=== PATIENT | female | born 1945 | race Asian ===

== ENCOUNTER 2017-04-13 20:44 | Inpatient (IN) | payer MEDICARE, OTHER ==
[~2017-04-13] VITALS: Ht 152.4 cm; Wt 44.5 kg
--- NOTE | 2017-04-13 20:50 | NUR ---
CALLED NURSING SUP. FOR TELE BED
--- NOTE | 2017-04-13 20:50 | NUR ---
BB RA 81. PT C/O LEFT SIDED CP 1HR AGING BOX HAND. PER IV STARTED ON LEFT WRIST 20G, INTACT AND PATENT. EMS ADMIN 162 ASPRIN AND 2 SPRAYS NITRO WITH RELIEF. PT AOX4 RR EVEN AND UNLABORED. NO SOB NOTED. NAD NOTED. NO NVD AT THIS TIME. PT NOT DIAPHORETIC. PT GOWNED AND PLACED ON MONITOR. DR LOVETT AT BEDSIDE FOR EVAL.
[2017-04-13 20:58] LABS: BASOPHILS # (AUTO) 0.4 /CMM (0.0-0.2); BASOPHILS % (AUTO) 2.7 % (0.0-2.0); EOSINOPHILS % (AUTO) 0.3 % (0.0-6.0); HEMATOCRIT 37 % (33-45); HEMOGLOBIN 12.4 g/dL (11.5-14.8); LYMPHOCYTES # (AUTO) 0.9 /CMM (0.8-4.8); LYMPHOCYTES % (AUTO) 5.7 % (20.0-44.0); MEAN CORPUSCULAR HEMOGLOBIN 30 PG (26.0-33.0); MEAN CORPUSCULAR HGB CONC 34 g/dl (31.0-36.0); MEAN CORPUSCULAR VOLUME 91 fL (82-100); MONOCYTES % (AUTO) 6.5 % (2.0-12.0); NEUTROPHILS # (AUTO) 13.5 /CMM (1.8-8.9); NEUTROPHILS % (AUTO) 84.8 % (43.0-81.0); PLATELET COUNT (AUTO) 287 /CMM (150-450); RDW COEFFICIENT OF VARIATION 11.7 (11.5-15.0); RED BLOOD CELL COUNT(AUTO) 4.06 MIL/uL (4.0-5.2); WHITE BLOOD COUNT (AUTO) 15.8 K/uL (4.3-11.0)
[2017-04-13] MEDS ORDERED: ONDANSETRON HCL/PF 4 MG/2 ML VIAL ONE (20:59)
[2017-04-13] MEDS ORDERED: MORPHINE SULFATE INJ 4 MG/ML DISP.SYRIN ONE (20:59)
[2017-04-13] MEDS ORDERED: ONDANSETRON HCL/PF 4 MG/2 ML VIAL IVP ONE (21:00)
[2017-04-13] MEDS ORDERED: MORPHINE SULFATE INJ 2 MG/ML DISP.SYRIN IV ONE (21:00)
--- NOTE | 2017-04-13 21:01 | NUR ---
XRAY AT BEDSIDE
[2017-04-13 21:08] LABS: CALCIUM, SERUM 8.6 mg/dL (8.5-10.1); CARBON DIOXIDE 26 mmol/L (21-32); CHLORIDE 101 mmol/L (98-107); CREATININE 0.7 mg/dL (0.6-1.3); GLUCOSE 236 mg/dL (74-106); SODIUM SERUM 137 mmol/L (136-145); UREA NITROGEN, BLOOD 10 mg/dL (7-18)
[2017-04-13 21:17] LABS: TROPONIN I < 0.017 ng/mL (0.00-0.056)
--- NOTE | 2017-04-13 21:21 | NUR ---
PT ASSIGNED TO [facility] [id number]
[2017-04-13] MEDS ORDERED: IV NS 0.9% 1,000 ML ONE (21:29)
[2017-04-13] MEDS ORDERED: IV SET PRIMARY PUMP SET 1 EA INFUS.SET MC ONE ×2 (21:29→22:01)
[2017-04-13] MEDS ORDERED: CEFTRIAXONE 1GM BAG (ER ONLY) 50 ML IV ONE ×2 (21:29→21:30)
[2017-04-13] MEDS ORDERED: IV NS 0.9% 500 ML IV ONE (21:29)
[2017-04-13] MEDS ORDERED: AZITHROMYCIN 500 MG in IV D5W 250 ML IV ONE (21:30)
[2017-04-13] MEDS ORDERED: IV NS 0.9% 1,000 ML BAG IV ONE (21:30)
--- NOTE | 2017-04-13 21:53 | NUR ---
JESUS CALLED, BUGGY DRIVER, TRANSFERRED CALL TO
--- NOTE | 2017-04-13 21:55 | NUR ---
REPORT GIVEN TO RAVI NUGENT FOR TELE BED [phone]
[2017-04-13] MEDS: CEFTRIAXONE 1 G in IV D5W 50 ML IV SCH (22:00)
[2017-04-13] MEDS ORDERED: ACETAMINOPHEN 325 MG TABLET PO PRN (22:00)
[2017-04-13] MEDS ORDERED: ENOXAPARIN SODIUM 40 MG/0.4 ML DISP.SYRIN SQ SCH (22:00)
[2017-04-13] MEDS ORDERED: *INSULIN REGULAR(HUMULIN R)HUM 100 UNIT/ML VIAL SQ PRN (22:00)
[2017-04-13] MEDS ORDERED: HYDROCODONE/APAP 5/325MG 1 EACH TABLET PO PRN (22:00)
[2017-04-13] MEDS ORDERED: INSULIN REGULAR, HUMAN 100 UNIT/ML 3 ML VIAL SQ PRN (22:00)
[2017-04-13] MEDS ORDERED: MAGNESIUM HYDROXIDE 30 ML UDC PO PRN (22:00)
[2017-04-13] MEDS ORDERED: MAG HYDROX/AL HYDROX/SIMETH 30 ML UDC PO PRN (22:00)
[2017-04-13] MEDS ORDERED: ONDANSETRON HCL/PF 4 MG/2 ML VIAL IVP PRN (22:00)
[2017-04-13] MEDS ORDERED: DEXTROSE 50%-WATER 50 ML DISP.SYRIN IV PRN (22:00)
[2017-04-13] MEDS ORDERED: AZITHROMYCIN 500 MG VIAL ONE (22:00)
[2017-04-13] MEDS ORDERED: Z GUARD REMEDY 2 OZ OINT TP PRN (22:00)
[2017-04-13] MEDS ORDERED: ZOLPIDEM TARTRATE 5 MG TABLET PO PRN (22:00)
[2017-04-13] MEDS ORDERED: BLOOD SUGAR DIAGNOSTIC 1 EACH STRIP VI SCH (22:00)
[2017-04-13] MEDS ORDERED: IV D5W 250 ML IV ONE (22:01)
[2017-04-13 22:03] LABS: D-DIMER 0.23 mg/L(FEU (0.17-0.50); INR 0.94 (0.87-1.13)
[2017-04-13 22:25] VITALS: BP 139/69
--- NOTE | 2017-04-13 22:25 | NUR ---
RN NOTES ADMITTED A 72 YEARS OLD FEMALE, YAKUT PT FROM ER WITH PRIMARY DIAGNOSIS OF PNEUMONIA UNDER DR DING. PT ALERT AND ORIENTED X4, CHEST PAIN AT TOLERABLE LEVEL AT THIS TIME 2/10 ONLY ON MOVEMENT AND COUGHING. PT DENIES SOB, NOT IN DISTRESS, ON ROOM AIR AND TOLERATED WELL. VITAL SIGNS STABLE, AFEBRILE. ATTACHED TO TELE MONITOR WHICH READS SINUS RHYTHM WITH HEART RATE AT 83. BODY AND SKIN ASSESSMENT DONE WITH PICTURES TAKEN AND FILED IN THE CHART.IV ACCESS ON LEFT WRIST PATENT AND INTACT, WITH ONGOING AZYTHROMYCIN INFUSING WELL. ALL ORDERS NOTED AND CARRIED OUT. KEPT PT COMFORTABLE AND ATTENDED. WILL CONTINUE TO MONITOR PT.
[2017-04-13 22:30] VITALS: BP 139/69
--- NOTE | 2017-04-13 22:36 | NUR ---
PT TRANSFERED PER ACLS PROTOCOL.
[2017-04-13] MEDS ORDERED: ENOXAPARIN SODIUM 40 MG/0.4 ML DISP.SYRIN SQ ONE (23:17)
[2017-04-13] MEDS: AZITHROMYCIN 500 MG in IV D5W 250 ML IV SCH (23:26)
--- NOTE | 2017-04-13 23:34 | NUR ---
RN NOTES BLOOD SUGAR CHECKED 178 MG/DL, PT REFUSED FOR INSULIN. PER PT AND DAUGHTER AT BEDSIDE, PT IS NOT DIABETIC. WILL INFORM DR DING.
--- NOTE | 2017-04-13 23:39 | NUR ---
RN NOTES PT SEEN AND EXAMINED BY DR DING, WITH DAUGHTER AT BEDSIDE. MADE HIM AWARE BLOOD SUGAR IS 178 MG/DL AND PER PT AND DAUGHTER, PT IS NOT DIABETIC WITH ORDER TO D/C INSULIN SLIDING SCALE AND ACCUCHECK., NOTED AND CARRIED OUT.
[2017-04-14] VITALS (7 sets, daily range): BP systolic 116–146; BP diastolic 58–70
[2017-04-14 07:18] LABS: BASOPHILS % (AUTO) 0.2 % (0.0-2.0); HEMATOCRIT 36 % (33-45); HEMOGLOBIN 12.2 g/dL (11.5-14.8); LYMPHOCYTES # (AUTO) 0.9 /CMM (0.8-4.8); LYMPHOCYTES % (AUTO) 6.2 % (20.0-44.0); MEAN CORPUSCULAR HEMOGLOBIN 31 PG (26.0-33.0); MEAN CORPUSCULAR HGB CONC 34 g/dl (31.0-36.0); MEAN CORPUSCULAR VOLUME 92 fL (82-100); MONOCYTES % (AUTO) 6.8 % (2.0-12.0); NEUTROPHILS # (AUTO) 12.7 /CMM (1.8-8.9); NEUTROPHILS % (AUTO) 86.8 % (43.0-81.0); PLATELET COUNT (AUTO) 273 /CMM (150-450); RDW COEFFICIENT OF VARIATION 12.6 (11.5-15.0); RED BLOOD CELL COUNT(AUTO) 3.94 MIL/uL (4.0-5.2); WHITE BLOOD COUNT (AUTO) 14.7 K/uL (4.3-11.0)
--- NOTE | 2017-04-14 07:18 | NUR ---
COMPRESSION MOLDING MACHINE OPERATOR OPENING NOTES: RECEIVED PATIENT AWAKE IN BED IN NO ACUTE SIGNS OF DISTRESS. A/O X4, NO C/O PAIN OR DISCOMFORTS AT THIS TIME. ON ROOM AIR, BREATHING EVEN AND UNLABORED. ON TELE -MONITORING WITH READING OF SR WITH HR OF 80, NO C/O CHEST PAIN, NAUSEA OR VOMITING. IV ACCESS ON LEFT WRIST G#20 INTACT AND PATENT. BED IN LOW POSITION AND LOCKED WITH SIDE-RAILS UP X2. CALL LIGHT WITHIN REACH. ALL SAFETY PRECAUTIONS MAINTAINED. WILL CONTINUE TO MONITOR ACCORDINGLY.
[2017-04-14 07:29] LABS: CALCIUM, SERUM 8.5 mg/dL (8.5-10.1); CARBON DIOXIDE 25 mmol/L (21-32); CHLORIDE 105 mmol/L (98-107); CREATININE 0.4 mg/dL (0.6-1.3); GLUCOSE 117 mg/dL (74-106); PHOSPHORUS 2.4 mg/dL (2.5-4.9); POTASSIUM 3.7 mmol/L (3.5-5.1); SODIUM SERUM 139 mmol/L (136-145); UREA NITROGEN, BLOOD 7 mg/dL (7-18)
--- NOTE | 2017-04-14 07:29 | NUR ---
RN NOTES PT ASLEEP, HOB ELEVATED, NO SOB, NOT IN DISTRESS, ON ROOM AIR AND TOLERATED WELL. VITAL SIGNS STABLE, AFEBRILE. NO COMPLAIN OF CHEST PAIN, NO EPISODE OF NAUSEA AND VOMITING. TELE MONITOR READS SINUS RHYTHM WITH HEART RATE AT 78. ASSISTED TO THE BATHROOM, WITH STEADY GAIT.ALL NEEDS ATTENDED. ENDORSED TO MORNING RN FOR CONTINUITY OF CARE.
--- NOTE | 2017-04-14 08:08 | NUR ---
RN NOTES SEEN BY LINTING MACHINE OPERATOR WITH ORDER TO DISCONTINUE TELE-MONITORING, ORDERED CARRIED OUT, PT WITH NO C/O CHEST PAIN. WILL CONTINUE TO MONITOR.
[2017-04-14 08:45] LABS: THYROID STIMULATING HORMONE 0.385 uIU/mL (0.358-3.74)
[2017-04-14] MEDS: PANTOPRAZOLE 40 MG TABLET.DR PO SCH (09:07)
[2017-04-14] MEDS ORDERED: ROSU10TA25 PO (11:57)
[2017-04-14] MEDS ORDERED: MULT-24 PO (11:57)
[2017-04-14] MEDS ORDERED: ASPI81TA2 PO (11:57)
[2017-04-14] MEDS ORDERED: CHOL100044 PO (11:57)
--- NOTE | 2017-04-14 12:36 | NUR ---
RN NOTES PATIENT SEEN AND EVALUATED BY DR. Harika KENDRICK. ALL ABNORMAL BLOOD WORK RESULTS THIS MORNING REPORTED, ORDERED TO DO BLOOD WORK FOR BMP, CBC, MG AND PHOS TOMORROW MORNING( 04/15/2017). WILL CONTINUE TO MONITOR.
[2017-04-14] MEDS ORDERED: K PHOS NEUTRAL 250 MG TABLET PO ONE (16:00)
--- NOTE | 2017-04-14 18:49 | NUR ---
MS RN CLOSING NOTES: PATIENT AWAKE AND RESTING IN BED. A/O X4, VERBALLY RESPONSIVE WITH NO C/O PAIN OR DISCOMFORTS AT THIS TIME. VISITED BY DAUGHTER THIS AFTERNOON. ALL DUE MEDS GIVEN AND TOLERATED. ON ROOM AIR, BREATHING EVEN AND UNLABORED. IV ACCESS ON LEFT WRIST G#20 INTACT AND PATENT. ALL NEEDS AND CARE PROVIDED WELL. BED IN LOW POSITION AND LOCKED WITH SIDE-RAILS UP X2. CALL LIGHT WITHIN REACH. ALL SAFETY PRECAUTIONS MAINTAINED. WILL ENDORSED TO SCRAP SHEAR OPERATOR FOR ANNA.
[2017-04-14] MEDS: ENOXAPARIN SODIUM 40 MG/0.4 ML DISP.SYRIN SQ SCH (21:13)
[2017-04-14] MEDS ORDERED: SECONDARY IV SET 1 EA INFUS.SET MC ONE (21:42)
[2017-04-14] MEDS: CEFTRIAXONE 1 G in IV D5W 50 ML IV SCH (21:44)
[2017-04-14] MEDS: AZITHROMYCIN 500 MG in IV D5W 250 ML IV SCH (22:40)
--- NOTE | 2017-04-15 07:25 | NUR ---
ms rn initial notes Received patient in bed, awake, head of bed elevated, no SOB or distress noted, on room air and tolerated well. IV intact and patent. No complaint of pain or discomfort at this time. kept patient clean and comfortable in bed, call light with in patient reach, will continue to monitor accordingly.
[2017-04-15 07:59] LABS: BASOPHILS % (AUTO) 0.4 % (0.0-2.0); EOSINOPHILS # (AUTO) 0.1 /CMM (0.0-0.7); EOSINOPHILS % (AUTO) 0.8 % (0.0-6.0); HEMATOCRIT 41 % (33-45); HEMOGLOBIN 13.4 g/dL (11.5-14.8); LYMPHOCYTES # (AUTO) 1.9 /CMM (0.8-4.8); MEAN CORPUSCULAR HEMOGLOBIN 30 PG (26.0-33.0); MEAN CORPUSCULAR HGB CONC 33 g/dl (31.0-36.0); MEAN CORPUSCULAR VOLUME 92 fL (82-100); MONOCYTES # (AUTO) 0.8 /CMM (0.1-1.30); MONOCYTES % (AUTO) 7.2 % (2.0-12.0); NEUTROPHILS # (AUTO) 8.1 /CMM (1.8-8.9); NEUTROPHILS % (AUTO) 74.6 % (43.0-81.0); PLATELET COUNT (AUTO) 312 /CMM (150-450); RDW COEFFICIENT OF VARIATION 12.6 (11.5-15.0); RED BLOOD CELL COUNT(AUTO) 4.42 MIL/uL (4.0-5.2); WHITE BLOOD COUNT (AUTO) 10.9 K/uL (4.3-11.0)
[2017-04-15 08:00] VITALS: BP 130/71
[2017-04-15 08:20] LABS: CALCIUM, SERUM 9.2 mg/dL (8.5-10.1); CARBON DIOXIDE 28 mmol/L (21-32); CHLORIDE 102 mmol/L (98-107); CREATININE 0.5 mg/dL (0.6-1.3); GLUCOSE 103 mg/dL (74-106); MAGNESIUM 2.3 mg/dL (1.8-2.4); POTASSIUM 3.7 mmol/L (3.5-5.1); SODIUM SERUM 140 mmol/L (136-145); UREA NITROGEN, BLOOD 7 mg/dL (7-18)
[2017-04-15] MEDS: PANTOPRAZOLE 40 MG TABLET.DR PO SCH (08:21)
[2017-04-15 16:00] VITALS: BP 121/72
--- NOTE | 2017-04-15 16:12 | NUR ---
ms rn notes Endorsed to RN assigned to continue care.
[2017-04-15] MEDS: LACTOBACILLUS RHAMNOSUS GG 1 EACH CAP.SPRINK PO SCH (16:24)
--- NOTE | 2017-04-15 19:05 | NUR ---
ms rn notes patient in bed, awake, head of bed elevated, no SOB or distress noted, on room air and tolerated well. IV intact and patent. No complaint of pain or discomfort at this time. kept patient clean and comfortable in bed, call light with in patient reach, will endorse to next shift for continuity of care.
[2017-04-15 20:00] VITALS: BP 123/72
[2017-04-15] MEDS: ENOXAPARIN SODIUM 40 MG/0.4 ML DISP.SYRIN SQ SCH (21:11)
[2017-04-15] MEDS ORDERED: SECONDARY IV SET 1 EA INFUS.SET MC ONE (22:40)
[2017-04-15] MEDS: CEFTRIAXONE 1 G in IV D5W 50 ML IV SCH (22:46)
[2017-04-15] MEDS: AZITHROMYCIN 500 MG in IV D5W 250 ML IV SCH (23:31)
[2017-04-15] MEDS ORDERED: IV NS 0.9% 250 ML IV ONE (23:33)
--- NOTE | 2017-04-16 07:40 | NUR ---
RN MS NOTES PATIENT SITTING UP ON THE EDGE OF THE BED, ALERT AND ORIENTED, NO COMPLAINT OF PAIN OR DISCOMFORT, PIV ON LEFT WRIST PATENT AND INTACT, AMBULATORY TO THE RESTROOM, CALL LIGHT WITHIN REACH, SAFETY MEASURES IN PLACED, WILL CONTINUE TO MONITOR.
[2017-04-16 07:44] LABS: BASOPHILS % (AUTO) 0.2 % (0.0-2.0); EOSINOPHILS # (AUTO) 0.3 /CMM (0.0-0.7); EOSINOPHILS % (AUTO) 2.9 % (0.0-6.0); HEMATOCRIT 42 % (33-45); HEMOGLOBIN 14.2 g/dL (11.5-14.8); LYMPHOCYTES # (AUTO) 2.1 /CMM (0.8-4.8); LYMPHOCYTES % (AUTO) 23.2 % (20.0-44.0); MEAN CORPUSCULAR HEMOGLOBIN 30 PG (26.0-33.0); MEAN CORPUSCULAR HGB CONC 34 g/dl (31.0-36.0); MEAN CORPUSCULAR VOLUME 91 fL (82-100); MONOCYTES # (AUTO) 0.8 /CMM (0.1-1.30); MONOCYTES % (AUTO) 8.8 % (2.0-12.0); NEUTROPHILS # (AUTO) 5.7 /CMM (1.8-8.9); NEUTROPHILS % (AUTO) 64.9 % (43.0-81.0); PLATELET COUNT (AUTO) 356 /CMM (150-450); RDW COEFFICIENT OF VARIATION 12.3 (11.5-15.0); RED BLOOD CELL COUNT(AUTO) 4.67 MIL/uL (4.0-5.2); WHITE BLOOD COUNT (AUTO) 8.8 K/uL (4.3-11.0)
[2017-04-16 07:58] LABS: CALCIUM, SERUM 9.3 mg/dL (8.5-10.1); CARBON DIOXIDE 26 mmol/L (21-32); CHLORIDE 101 mmol/L (98-107); CREATININE 0.5 mg/dL (0.6-1.3); GLUCOSE 109 mg/dL (74-106); MAGNESIUM 2.3 mg/dL (1.8-2.4); PHOSPHORUS 3.6 mg/dL (2.5-4.9); POTASSIUM 3.9 mmol/L (3.5-5.1); SODIUM SERUM 136 mmol/L (136-145); UREA NITROGEN, BLOOD 8 mg/dL (7-18)
[2017-04-16] MEDS: PANTOPRAZOLE 40 MG TABLET.DR PO SCH (08:15)
[2017-04-16] MEDS: LACTOBACILLUS RHAMNOSUS GG 1 EACH CAP.SPRINK PO SCH ×2 (08:15→16:40)
[2017-04-16 08:17] VITALS: BP 139/73
[2017-04-16] MEDS ORDERED: FERR-58 PO (11:48)
[2017-04-16] MEDS ORDERED: LEVO500T15 PO (11:48)
[2017-04-16] MEDS ORDERED: SOD FERRIC GLUC 125 MG in IV NS 0.9% 100 ML IV SCH (14:00)
[2017-04-16 16:35] VITALS: BP 139/73
--- NOTE | 2017-04-16 18:45 | NUR ---
CLAY PUDDLER NOTES PATIENT ALERT AND ORIENTED, NO DISTRESS NOTED, BREATHING EVEN AND UNLABORED, DAUGHTER AT BEDSIDE, DISCUSSED DISCHARGE INSTRUCTIONS AND VERBALIZED UNDERSTANDING, PRESCRIPTION GIVEN TO THE PATIENT, BELONGINGS RECONCILED, PIV REMOVED, AMBULATES INDEPENDENTLY, RECEIVED ASSISTANCE WITH ADLS, SKIN ASSESSMENT COMPLETED, SKIN INTACT, LEFT THE FACILITY WITH THE DAUGHTER VIA PRIVATE CAR.
[2017-04-16] MEDS ORDERED: AZITHROMYCIN 250 MG TABLET PO SCH (23:00)
== END 2017-04-16 18:45 | disposition home or self-care (01) | DRG 195 ==
LOC: ER 20:46 → TELE 21:24 → MED 04-14 09:48
PROVIDERS: ADMIT Internal Medicine; ATTEND Internal Medicine
DX: J15.9 Unspecified bacterial pneumonia (principal); E78.5 Hyperlipidemia, unspecified; R07.89 Other chest pain; R73.9 Hyperglycemia, unspecified; D50.9 Iron deficiency anemia, unspecified; R07.81 Pleurodynia
CPT/HCPCS: 36415; 71010-TC; 80048-TC; 80061-TC; 82728-TC; 82962-TC; 83540-TC; 83605-TC; 83735-TC; 84100-TC; 84439-TC; 84443-TC; 84484-TC; 85025-TC; 85378-TC; 85730-TC; 87040-TC; 87081-TC; 93307-TC; A4606; J0456; J0696; J1650; J1815; J2270; J2405; J2916; J7030; J7040; J7050; J7060; Z7610